=== PATIENT | female | born 1985 | race Caucasian/White ===

== ENCOUNTER 2020-08-02 17:06 | Inpatient (IN) | payer SELFPAY ==
--- NOTE | 2020-08-02 17:11 | ECG_ITS ---
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 Measurements Intervals [place] Rate: 71 P: 55 [place]: 169 QRS: 73 QRSD: 101 T: 35 QT: 410 QTc: 448 Interpretive Statements SINUS RHYTHM No previous ECG available for comparison Electronically Signed On 08-02-2020 19:26:16 CDT by Cleo Avila M.D. [id number]
[2020-08-02 17:28] VITALS: BP 130/86; PULSE 65; RESP 18; TEMP 36.6; O2SAT 98; BMI 38.7
[2020-08-02 17:35] VITALS: BP 130/86; PULSE 68; RESP 16; O2SAT 98
[2020-08-02 17:52] LABS: HCG Qualitative Urine. Negative (Negative)
[2020-08-02 17:53] LABS: Basophils # 0.1 10^3/uL (0.0-0.1); Basophils % 0.6 %; Eosinophils # 0.4 10^3/uL (0.0-0.8); Hematocrit 44.5 % (37.0-47.0); Hemoglobin 14.6 g/dL (11.5-15.3); Lymphocytes # 3.3 10^3/uL (0.8-4.8); Mean Corpuscular HGB Conc 32.8 g/dL (30.0-36.0); Mean Corpuscular Hemoglobin 28.6 pg (28.0-34.0); Mean Corpuscular Volume 87.1 fL (81-99); Mean Platelet Volume 9.6 fL (7.4-10.4); Monocytes # 0.6 10^3/uL (0.2-0.9); Monocytes % 5.6 %; Neutrophils # 5.85 10^3/uL (1.8-7.7); Neutrophils % 57.6 %; Nucleated Red Blood Cells % 0 %; Platelet Count 363 10^3/cmm (130-400); Red Blood Count 5.11 10^6/uL (4.1-5.3); Red Cell Distribution Width 12.7 % (12.1-15.1); White Blood Count 10.2 10^3/uL (4.0-10.0)
[2020-08-02] MEDS: sodium chloride 0.9% 1,000 ML 999 ML IV (17:53)
[2020-08-02 18:18] LABS: Alanine Aminotransferase 12 U/L (0-33); Alkaline Phosphatase 56 IU/L (35-105); Anion Gap 14.6 (5-19); Aspartate Amino Transferase 12 U/L (0-32); Blood Urea Nitrogen 8 mg/dL (6-20); Calcium 9.2 mg/dL (8.5-10.5); Carbon Dioxide 21 mmol/L (22-29); Chloride 104 mmol/L (98-107); Globulin 2.9 g/dL (1.3-4.6); Glomerular Filtration Rate 70.8 mL/min (90-130); Glucose 96 mg/dL (65-115); Osmolality Calculated 280 mOsm/kg (285-295); Potassium 3.6 mmol/L (3.5-5.1); Sodium 136 mmol/L (136-145); Total Bilirubin 0.2 mg/dL (0.15-1.2); Total Protein 6.9 g/dL (6.6-8.7)
--- NOTE | 2020-08-02 18:19 | W.ED.OVERDOS ---
HPI - Overdose General: Chief Complaint: Overdose Stated Complaint: od Time Seen by Provider: 08/02/20 17:07 Source: patient and EMS Mode of arrival: EMS Limitations: no limitations History of Present Illness: HPI Narrative: 35-year-old female who states she was depressed and did not want to kill herself. She is on the side of the road and took a handful of 100 mg Vistaril pills. She is not exactly sure how many she took but states she will to go to sleep and not wake up. She denies any worsening or improving factors. MD complaint: intentional overdose Review of Systems Const: Denies: fever(s), chills, body aches or change in appetite Eyes: Denies: blurry vision or eye discomfort ENMT: Denies: throat pain or dental pain Card: Denies: chest pain Resp: Denies: dyspnea GI: Denies: abdominal pain, nausea, vomiting or diarrhea : Denies: dysuria Musc: Denies: neck pain or back pain Skin/Breast: Denies: rash Neuro: Denies: headache(s) Psych: Reports: depression and suicidal ideation Eusebio/Lymph: Denies: easy bruising All/Imm: Denies: urticaria Physical Exam Const: COMMON NORMALS: no acute distress, patient oriented x3 and healthy appearing HENMT: COMMON NORMALS: normocephalic and atraumatic HEAD & SCALP: normocephalic and atraumatic Eye: COMMON NORMALS: Equal, round and reactive pupils present and EOMs intact bilaterally PUPIL: Yes Equal, round and reactive pupils present Neck/C-Spine: COMMON NORMALS: full ROM and supple Chest: COMMONS NORMALS: normal inspection of the chest and normal palpation of entire chest wall Resp: COMMON NORMALS: normal respiratory effort, No retractions, No use of accessory muscles and clear to auscultation bilaterally AUSCULTATION: clear to auscultation bilaterally Cardio: COMMON NORMALS: regular rate, regular rhythm and No murmurs present (Cardio) RATE: regular rate RHYTHM: regular rhythm GI: COMMON NORMALS: Normal to inspection, nondistended, normoactive bowel sounds present, Soft to palpation, non-tender and no masses PALPATION: Yes Soft to palpation Extremity: COMMON NORMALS: normal to inspection and full ROM Neuro: COMMON NORMALS: patient oriented x3, moves all extremities and no focal motor deficits Psych: COMMON NORMALS: mental status grossly normal and cooperative THOUGHT CONTENT: Yes Suicidality present Skin: COMMON NORMALS: no rashes or lesions noted and no wounds GENERAL SKIN EXAM: no rashes or lesions noted Course Vital Signs: Vital signs: Vital Signs Temperature 97.8 F 08/02/20 17:28 Pulse Rate 71 08/02/20 19:03 Respiratory Rate 16 08/02/20 19:03 Blood Pressure 133/89 08/02/20 19:03 Pulse Oximetry 98 08/02/20 19:03 MDM - Overdose MDM Narrative: Medical decision making narrative: Patient presents for suicidal ideation along with overdose. Toxic ingestion. I spoke to [facility] control and peak is 1 to 3 hours and she has had no anticholinergic signs. Her other drug levels are normal. Patient is stable for admission to the psychiatric unit. I spoke to Dr. Hartley and will admit. Lab Data: Labs: Lab Results 08/02/20 08/02/20 08/02/20 Range/Units 15:39 15:39 17:25 WBC 10.2 H (4.0-10.0) 10^3/ uL RBC 5.11 (4.1-5.3) 10^6/u L Hgb 14.6 (11.5-15.3) g/dL Hct 44.5 (37.0-47.0) % MCV 87.1 (81-99) fL MCH 28.6 (28.0-34.0) pg MCHC 32.8 (30.0-36.0) g/dL RDW 12.7 (12.1-15.1) % Plt Count 363 (130-400) 10^3/c mm MPV 9.6 (7.4-10.4) fL Neut % (Auto) 57.6 % Lymph % (Auto) 32.0 % [place] % (Auto) 5.6 % Eos % (Auto) 4.0 % Baso % (Auto) 0.6 % Neut # (Auto) 5.85 (1.8-7.7) 10^3/u L Lymph # (Auto) 3.3 (0.8-4.8) 10^3/u L [place] # (Auto) 0.6 (0.2-0.9) 10^3/u L Eos # (Auto) 0.4 (0.0-0.8) 10^3/u L Baso # (Auto) 0.1 (0.0-0.1) 10^3/u L Nucleated RBC % (a uto) 0 % Nucleated RBCs # 0.0 /100WBC Sodium 136 (136-145) mmol/L Potassium 3.6 (3.5-5.1) mmol/L Chloride 104 (98-107) mmol/L Carbon Dioxide 21 L (22-29) mmol/L Anion Gap 14.6 (5-19) BUN 8 (6-20) mg/dL Creatinine 0.9 (0.5-0.9) mg/dL GFR Calculation 70.8 L (90-130) mL/min Glucose 96 (65-115) mg/dL Calculated Osmolal ity 280 L (285-295) mOsm/k g Calcium 9.2 (8.5-10.5) mg/dL Total Bilirubin 0.2 (0.15-1.2) mg/dL AST 12 (0-32) U/L ALT 12 (0-33) U/L Alkaline Phosphata se 56 (35-105) IU/L Total Protein 6.9 (6.6-8.7) g/dL Albumin 4.0 (3.5-5.2) g/dL Globulin 2.9 (1.3-4.6) g/dL HCG, Qual Negative (Negative) Salicylates < 0.3 L (3-10) mg/dL Acetaminophen < 5.0 L (10-30) ug/mL Ethyl Alcohol < 10 (0-10) mg/dL EKG Data^: EKG 1: Attestation: I personally reviewed and interpreted this EKG as follows: EKG interpretation date: 08/02/20 EKG interpretation time: 16:29 Interpretation: nsr hr [address] or t wave abnormalities qrs 101 qtc 433 Discharge Plan Discharge Patient Disposition: Admitted As Inpatient Admit Provider: Naeem Hartley Clinical Impression: Drug overdose, Suicidal ideations Condition: Stable Coding Level of Care Code ED Applied Anthropologist for Chg Fwd Exam Comprehensive
[2020-08-02 18:36] LABS: Acetaminophen < 5.0 ug/mL (10-30); Alcohol Level < 10 mg/dL (0-10); Salicylate < 0.3 mg/dL (3-10)
[2020-08-02 18:40] VITALS: BP 141/89; PULSE 78; RESP 18; O2SAT 98
[2020-08-02 19:03] VITALS: BP 133/89; PULSE 71; RESP 16; O2SAT 98
--- NOTE | 2020-08-02 19:25 | PC.NURSE ---
called report to Heather in NPU
[2020-08-02 19:42] VITALS: BP 131/97; PULSE 80; RESP 17; TEMP 37.1; O2SAT 96
[2020-08-02 21:29] LABS: Amphetamines Screen Urine Negative (Negative); Barbiturates Screen Urine Negative (Negative); Benzodiazepines Screen Urine Negative (Negative); Cocaine Screen Urine Negative (Negative); Opiate Screen Urine Negative (Negative); PCP Screen Urine Negative (Negative); THC Screen Urine Negative (Negative)
--- NOTE | 2020-08-02 21:32 | PC.NURSE ---
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 She Talked about her medications and she stated that wellbutrin makes her like a serial killer, very angry.
--- NOTE | 2020-08-02 21:43 | PC.NURSE ---
Patient states that she has attempted suicide seven times since the age of [age] years old. She states that she has attempted by cutting, Moter vehicle, and drug overdose.
[2020-08-02 22:00] VITALS: BP 131/97; PULSE 80; RESP 17; TEMP 37.1
[2020-08-02] MEDS: prazosin 1 mg Capsule PO (23:26)
--- NOTE | 2020-08-02 23:39 | PC.NURSE ---
Addendum entered by Heather Dasilva RN 08/03/20 00:13: patient is resting in her bed with a cool compress on her eyes but says the pain is much less rating it about a 3 on a 1-10 pain scale Original Note: prn tylenol tylenol 650mg po given for eye/headache pain. rated 5 on a 1-10 pain scale. Patient was given a cool compress to minimize irritation of her eyes. will continue to monitor
[2020-08-02] MEDS: acetaminophen 325 mg Tablet 650 MG PO (23:40)
[2020-08-03 06:00] VITALS: BP 95/62; PULSE 62; RESP 16; TEMP 36.7; O2SAT 99
[2020-08-03] MEDS: lithium carbonate 150 mg Capsule PO (08:18)
[2020-08-03] MEDS: nicotine 21 mg Patch 1 PATCH TRANSDERMA (08:20)
[2020-08-03] MEDS: venlafaxine ER (24HR) 150 mg Capsule PO (08:21)
--- NOTE | 2020-08-03 10:44 | P.HP_ITS ---
Providers/Chief Complaint Admitting Physician: Naeem Hartley Chief Complaint: od HPI NPU History of Present Illness ER physician note:HPI Narrative: 35-year-old female who states she was depressed and did not want to kill herself. She is on the side of the road and took a handful of 100 mg Vistaril pills. She is not exactly sure how many she took but states she will to go to sleep and not wake up. She denies any worsening or improving factors. Chief complaint: It seems like I get to the point where medication does not work anymore. Aditi Aldana is a 35 year old female who was in active treatment with medication management and psychotherapy in [place] until 2 weeks ago when she decided to return home to [place]. She returned home to find out that even though she had gone through remarkable improvements and changes, her situation in [place] had not changed. She is unemployed. She was going to live with her mother. However now she is homeless. She is not allowed to see her 3 children ages 18, 14, and 10. She has no hope for employment. Most importantly, she realizes that she is the same person as when she left here instead of the person that was doing so much better in [place]. She feels hopeless and overwhelmed. She has suicidal impulses that are amplified by her feelings of hopelessness. She denied side effects to the medications and said that they have actually been working well since being started in May of this year. It was only when she returned to [place] that they stopped working. She says she has been compliant with her medications up until presenting to the emergency room yesterday with suicidal thoughts. She is taking Effexor XR 150 mg daily, l ithium 150 mg 4 times daily, and prazosin 1 mg at bedtime. No lithium level was done on admission. She said that she had multiple plans and considered seriously following through on them. She decided to come to the emergency room instead. She denies use of alcohol and other substances. Laboratory Tests 08/02/20 08/02/20 15:39 17:25 Urine Opiates Screen Negative Ur Barbiturates Screen Negative Ur Phencyclidine Scrn Negative Ur Amphetamines Screen Negative U Benzodiazepines Scrn Negative Urine Cocaine Screen Negative U Marijuana (THC) Screen Negative Ethyl Alcohol < 10 Past psychiatric history: She says she has been on a lot of different medications. She was hospitalized earlier this summer on her birthday for suicidal ideation. It was at that time she was started on her current medications. She was seeing a therapist on a regular basis on outpatient services while in [place]. Review of medical records here reveals no mental health interventions. Social history: The patient grew up in [place]. She is a high school graduate. It is unclear how she lost custody of her 3 children. They are currently living with the parents of their biological father. She left the surgery 2 years ago. It is unclear the circumstances. She went to [place] first and then to [place]. When she was living in [place] she had employment, housing, and access to medical services. She has now lost all of those. She most recently was living with her mother who promised her senior living and support. She evidently has reneged on that promise. Meds NPU Home Medications Medication Instructions Recorded Confirmed Last Taken Type Effexor XR 150 mg PO DAILY 08/02/20 08/02/20 08/01/20 History Vistaril 100 mg PO BEDTIME PRN 08/02/20 08/02/20 08/01/20 History lithium carbonate 150 mg PO QID 08/02/20 08/02/20 08/01/20 History prazosin 100 mg PO BEDTIME 08/02/20 08/02/20 08/01/20 History Allergies Allergy/AdvReac Type Severity Reaction Status Date / Time bupropion [From Wellbutrin] Allergy ADR-Agitate Verified 08/02/20 21:30 d Mental Status Exam 2 MSE Comments: Mental Status Exam: The patient is an alert interpersonally engaged female appearing approximately her stated age. She shows significant attention to hygiene and grooming. Her hair is dyed an attractive color of purple. Information provided is internally consistent and consistent with that in the chart. She is believed to be a reliable informant to the best of her ability. Appearance: no gross neurological deficits., gait is unremarkable; AIMS=0 Speech: Speech is of normal rate and rhythm and easily understood. Thought processes: Thought processes are abstract. Judgment is adequate for safety. Associations: intact Psychotic processes: There is no indication of guarding or paranoia. There is no attention to the internal stimuli. Auditory and visual hallucinations are denied. Judgment: Insight is fair. Problem solving skills are adequate for safety. Orientation: The patient is oriented to person, place time and situation. Memory: no deficits noted in immediate, intermediate, or remote spheres. Attention: The patient is alert and interpersonally engaged. Language: Verbalizations are coherent. Fund of knowledge: Fund of knowledge is adequate. Affect/Mood: Affect is consistent with a depressed mood. pt denies suicidal ideation Affective range is appropriate. Psychosis: perception unimpaired except through cognitive distortion; reality testing intact. Vitals/I&O/Wt Last Vital Signs Temp 98.0 F 08/03/20 06:00 Pulse 62 08/03/20 06:00 Resp 16 08/03/20 06:00 BP 95/62 08/03/20 06:00 Pulse Ox 99 08/03/20 06:00 Weight last 48 hrs Weight 108.862 kg Data NPU : 08/02/20 15:39 08/02/20 15:39 A&P Assessment and plan (1) Adjustment disorder with depressed mood: Status: Acute (2) Major depression, recurrent: Status: Acute Qualifiers: Active/Remission status: currently active Major depression episode severity: moderate Qualified Code(s): F33.1 - Major depressive disorder, recurrent, moderate Additional A&P Information Assessment: Aditi Aldana is a 35-year-old woman who presents in the throes of severe psychosocial crisis which has amplified her symptoms of depression. It is unclear to what degree significant changes in medication would provide bene fit. However we discussed the plans below and the patient was in agreement. Due to the psychiatric conditions and treatment listed in the Assessment and Plan - the patient requires continued hospitalization. Will provide a safe and therapeutic environment for patient.. Will continue inpatient treatment to allow for medication adjustment and monitoring. Will continue q15 min safety checks. Aditi Aldana is a 35-year-old woman who presents in the throes of severe psychosocial crisis which has amplified her symptoms of depression. It is unclear to what degree significant changes in medication would provide benefit. However we discussed the plans below and the patient was in agreement. Will continue lithium 600 mg twice daily. We will get a lithium level tomorrow morning. Continue prazosin 1 mg at bedtime. Effexor XR will be increased to 300 mg daily. Monitor patient's mood, sleep, appetite, and behavior closely. Encourage patient to participate in individual and group therapeutic sessions on the [place]. Estimated length of stay 5 days The expected benefits and potential side effects of patient's psychiatric medications were discussed with the patient. The patient understands and consents to treatment. CRITERIA FOR DISCHARGE: stable on medications and no longer an imminent threat to self or others Involuntary Hold Information 96 Hour Hold: 96 Hour Involuntary Admission: Yes 96 Hour Hold Ending Date: 08/08/20 96 Hour Hold Ending Time: 19:09 Attestations NPU Medical Necessity Statement*: Patient will remain in the hospital another 2-4 nights for assessment of medication efficacy and tolerability. 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
[2020-08-03 14:00] VITALS: BP 136/98; PULSE 78; RESP 18; TEMP 36.7; O2SAT 98
[2020-08-03] MEDS: lithium carbonate 150 mg Capsule 300 MG PO (18:21)
[2020-08-03 19:41] VITALS: BP 135/92; PULSE 69; RESP 16; TEMP 36.5; O2SAT 97
[2020-08-03] MEDS: prazosin 1 mg Capsule PO (22:25)
[2020-08-03] MEDS: hyDROXYzine 25 mg Capsule 100 MG PO (22:25)
--- NOTE | 2020-08-04 04:19 | PC.NURSE ---
Visteril/Trazodone Visteril 50mg PO for anxiety with positive result and lessened anxiety this evening Trazodone 50mg PO given for sleep and patient rested this evening. will continue to monitor/.
[2020-08-04 06:00] VITALS: BP 94/60; PULSE 73; RESP 17; TEMP 36.8; O2SAT 96
[2020-08-04 07:50] LABS: Thyroid Stimulating Hormone 0.97 uIU/mL (0.27-4.20)
[2020-08-04 08:16] LABS: Lithium 0.2 mmol/L (0.6-1.2)
[2020-08-04 08:24] LABS: Free T4 Free Thyroxine 1.12 ng/dL (0.82-1.77)
[2020-08-04] MEDS: venlafaxine ER (24HR) 150 mg Capsule 300 MG PO (09:32)
[2020-08-04] MEDS: lithium carbonate 150 mg Capsule 300 MG PO (09:32)
[2020-08-04] MEDS: nicotine 21 mg Patch 1 PATCH TRANSDERMA (10:00)
--- NOTE | 2020-08-04 11:43 | P.DS_ITS ---
Diagnoses at Discharge Discharge Diagnosis (1) Adjustment disorder with depressed mood: Status: Resolved (2) Major depression, recurrent: Status: Resolved Qualifiers: Active/Remission status: currently active Major depression episode severity: moderate Qualified Code(s): F33.1 - Major depressive disorder, recurrent, moderate (3) Borderline personality disorder in adult: Status: Chronic Reason for Visit Reason for Visit: od Brief History: ER physician note:HPI Narrative: 35-year-old female who states she was depressed and did not want to kill herself. She is on the side of the road and took a handful of 100 mg Vistaril pills. She is not exactly sure how many she took but states she will to go to sleep and not wake up. She denies any worsening or improving factors. Chief complaint: It seems like I get to the point where medication does not work anymore. Aditi Aldana is a 35 year old female who was in active treatment with medication management and psychotherapy in [place] until 2 weeks ago when she decided to return home to [place]. She returned home to find out that even though she had gone through remarkable improvements and changes, her situation in [place] had not changed. She is unemployed. She was going to live with her mother. However now she is homeless. She is not allowed to see her 3 children ages 18, 14, and 10. She has no hope for employment. Most importantly, she realizes that she is the same person as when she left here instead of the person that was doing so much better in [place]. She feels hopeless and overw helmed. She has suicidal impulses that are amplified by her feelings of hopelessness. She denied side effects to the medications and said that they have actually been working well since being started in May of this year. It was only when she returned to [place] that they stopped working. She says she has been compliant with her medications up until presenting to the emergency room yesterday with suicidal thoughts. She is taking Effexor XR 150 mg daily, lithium 150 mg 4 times daily, and prazosin 1 mg at bedtime. No lithium level was done on admission. She said that she had multiple plans and considered seriously following through on them. She decided to come to the emergency room instead. She denies use of alcohol and other substances. Hospital Course Hospital Course (1) Borderline Personality traits (2) Adjustment disorder with depressed mood: Additional A&P Information Assessment: Aditi Aldana is a 35-year-old woman who presents in the throes of severe psychosocial crisis which has amplified her symptoms of depression. It is unclear to what degree significant changes in medication would provide benefit. However we discussed the plans below and the patient was in agreement. Due to the psychiatric conditions and treatment listed in the Assessment and Plan - the patient requires continued hospitalization. Will provide a safe and therapeutic environment for patient.. Will continue inpatient treatment to allow for medication adjustment and monitoring. Will continue q15 min safety checks. Aditi Aldana is a 35-year-old woman who presents in the throes of severe psychosocial crisis which has amplified her symptoms of depression. It is unclear to what degree significant changes in medication would provide benefit. However we discussed the plans below and the patient was in agreement. Will continue lithium 600 mg twice daily. We will get a lithium level tomorrow morning. Continue prazosin 1 mg at bedtime. Effexor XR will be increased to 300 mg daily. By hospital day #3, she was no longer presenting herself as being in a hopeless situation with no type of emotional or social support. Suddenly, she had multiple friends which were willing to assist her in moving to [place] with her best friend Milady. Turns out Milady came up from [place] to be with her during this episode and had been here all along. She had a friend that invited her to [place] and another which invited her to [place] but [place] was too far away. Phone calls were received from her inquiring about her status and offering support. Her apparently is still back to [place]. At no time did she make reference to having a . She reported complete resolution of her depressive symptoms. She did complain of a rash that she had on her back from her lupus erythematosus. She did not mention that this was a disorder with which she was inflicted. She requested discharge. She was not an imminent danger to self or others. She was stable on her medications and without side effects. Her thyroid panel was within normal limits. It should be noted that her lithium level which was not acquired until after her second day here was = 0.2 indicating that she was likely noncompliant with this medication. Involuntary Hold Information 96 Hour Hold: 96 Hour Involuntary Admission: Yes 96 Hour Hold Ending Date: 08/08/20 96 Hour Hold Ending Time: 19:09 Mental Status Exam MSE Comments: Discharge Mental Status Exam: Appearance: hygiene is good; no gross neurological deficits., gait is unremarkable; AIMS=0 Speech: Speech is of normal rate and rhythm and easily understood. Thought processes: Thought processes are abstract. Judgment is adequate for safety. Associations: intact Psychotic processes: There is no indication of guarding or paranoia. There is no attention to the internal stimuli. Auditory and visual hallucinations are denied. Judgment: Insight is fair. Problem solving skills are adequate for safety. Orientation: The patient is oriented to person, place time and situation. Memory: no deficits noted in immediate, intermediate, or remote spheres. Attention: The patient is alert and interpersonally engaged. Language: Verbalizations are coherent. Fund of knowledge: Fund of knowledge is adequate. Affect/Mood: Affect is consistent with a euthymic mood. denied suicidal ideation Affective range is appropriate. Psychosis: perception unimpaired except through cognitive distortion; reality testing intact. Discharge Data Data Completed and Pending: Labs from last 24 hours 08/04/20 08/04/20 06:49 06:49 TSH 0.97 Free T4 1.12 [place] 0.2 L Vitals: Last Vital Signs Temp 98.3 F 08/04/20 06:00 Pulse 73 08/04/20 06:00 Resp 17 08/04/20 06:00 BP 94/60 08/04/20 06:00 Pulse Ox 96 08/04/20 06:00 Discharge Plan Discharge Patient Disposition: Home Condition: Stable Prescriptions: New prednisone 1 mg Tablet 3 mg PO DAILY 14 Days Qty: 14 RF: 0 Continued prazosin 1 mg Capsule 100 mg PO BEDTIME RF: 0 lithium carbonate 150 mg Capsule 150 mg PO QID RF: 0 Effexor XR capsule 150 mg PO DAILY RF: 0 Vistaril 100 mg PO BEDTIME PRN (Reason: Anxiety) RF: 0 Discharge Orders: Discharge Order (Routine); Ordered 08/04/20 Ordered By: Nelson George Discharge Attestations NPU Time Spent in Discharge Care*: greater than 30 min Coding Level of Care Code Acute 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
[2020-08-04 11:58] VITALS: BP 94/60; PULSE 73; RESP 17; TEMP 36.8; O2SAT 96
[2020-08-04 13:34] VITALS: BP 124/82; PULSE 93; RESP 18; TEMP 37.1
== END 2020-08-04 14:28 | disposition home or self-care (01) | DRG 885 ==
LOC: ER 17:54 → NP 19:12
PROVIDERS: Emergency Medicine; Psychiatry & Neurology Psychiatry
DX: F33.1 Major depressive disorder, recurrent, moderate (principal); R45.851 Suicidal ideations; F43.21 Adjustment disorder with depressed mood; F60.3 Borderline personality disorder
CPT/HCPCS: 12345; 36415; 80053; 80178; 80306; 80307; 81025; 84439; 84443; 85025; 93005; 99283; J7030